=== PATIENT | female | born 1955 | race Two or more races ===

== ENCOUNTER 2022-12-28 10:08 | Emergency (ER) | payer OTHER ==
[~2022-12-28] VITALS: Ht 172.7 cm; Wt 97.5 kg
[2022-12-28] MEDS ORDERED: HYZAAR 100-251 EACH PO (10:20)
== END 2022-12-28 12:44 | disposition home or self-care (01) ==
LOC: ER 10:08
DX: M62.838 Other muscle spasm (principal); M54.2 Cervicalgia; E03.9 Hypothyroidism, unspecified

== ENCOUNTER 2024-08-27 07:57 | Emergency (ER) | payer OTHER ==
[~2024-08-27] VITALS: Ht 172.7 cm; Wt 96.6 kg
[~2024-08-27 07:57] MED LIST: HYZAAR 100-251 EACH PO
[2024-08-27] MEDS ORDERED: DOXYCYCLINE HY100 MG (08:29)
[2024-08-27] MEDS ORDERED: LOSARTAN/HYDROCHLOROTHIAZIDE 1 UDTAB TABLET PO STA (08:59)
[2024-08-27] MEDS ORDERED: IPRATROPIUM BROMIDE 0.5 MG/2.5 ML AMPUL.NEB IH SCH (09:00)
[2024-08-27 09:59] LABS: HEMATOCRIT 43.7 % (36.0-45.00); HEMOGLOBIN 14.4 g/dL (12.0-15.00); MEAN CORPUSCULAR HEMOGLOBIN 30.1 pg (27.00-32.0); PLATELET COUNT 171 K/uL (150-450); RED CELL DISTRIBUTION WIDTH 14.3 % (11.5-14.5)
[2024-08-27 10:05] LABS: PH,URINE 6.5 (5.0-8.0); URINE APPEARANCE Clear; URINE BILIRRUBIN Negative (NEGATIVE); URINE BLOOD Negative; URINE COLOR Yellow; URINE GLUCOSE Negative (NEGATIVE); URINE KETONE Negative (NEGATIVE); URINE LEUKOCYTE Negative; URINE NITRATE Negative; URINE PROTEIN Negative (NEGATIVE); URINE UROBILINOGEN 0.2 E.U./dl
[2024-08-27 10:08] LABS: URINE BACTERIA 8.5 uL (0.0-1933); URINE EPITHELIAL CELLS 4.4 uL (0.0-38.8); URINE RBC 7.7 uL (0.0-20.8)
[2024-08-27 10:14] LABS: URINE CAST 0.14 uL (0.0-1.40); URINE WBC 0.4 uL (0.0-23.2)
[2024-08-27 10:30] LABS: INR 0.94; PARTIAL THROMBOPLASTIN TIME 27.4 SECONDS (22.0-34.0); PROTHROMBIN TIME 10.3 SECONDS (9.0-11.5)
[2024-08-27 10:37] LABS: ALBUMIN 3.6 gm/dL (3.4-5.0); BILIRUBIN TOTAL 0.55 mg/dL (0.3-1.2); CALCIUM 9.6 mg/dL (8.5-10.1); CREATININE SERUM 0.77 mg/dL (0.55-1.02); GFR 74.33; GLOBULINA 3.6 G/DL (2.4-3.5); POTASSIUM 4.21 mEq/L (3.5-5.1); TOTAL PROTEIN 7.2 gm/dL (6.4-8.2)
[2024-08-27 10:56] LABS: ABG PH 7.442 (7.35-7.45); ABG PO2 90.5 mmHg (80-100); ABG pCO2 37.9 mmHg (35-45); BASE EXCESS 1.3 mmol/l; BICARBONATE 25.2 mmol/l (23-25); SaO2 97.4 %; Tco2 26.4 mmol/l; allen test SATISFACTORY; o2 21 %; puncture site RADIAL RIGHT
== END 2024-08-27 12:26 | disposition home or self-care (01) ==
LOC: ER 07:59
PROVIDERS: General Practice; Internal Medicine
DX: R06.02 Shortness of breath (principal); Z20.822 Contact with and (suspected) exposure to COVID-19